=== PATIENT | female | born 1965 | race Caucasian/White ===

== ENCOUNTER 2022-04-19 08:40 | Outpatient (CLI) | payer BC, SELFPAY | END 2022-04-19 08:41 | disposition home or self-care (01) | DX: H65.23 Chronic serous otitis media, bilateral (principal); H90.41 Sensorineural hearing loss, unilateral, right ear, with unrestricted hearing on the contralateral side; H90.72 Mixed conductive and sensorineural hearing loss, unilateral, left ear, with unrestricted hearing on the contralateral side | CPT/HCPCS: 92557; 92567 ==

== ENCOUNTER 2022-06-28 13:01 | Outpatient (CLI) | payer BC, SELFPAY | END 2022-06-28 13:02 | disposition home or self-care (01) | DX: H90.3 Sensorineural hearing loss, bilateral (principal); H90.12 Conductive hearing loss, unilateral, left ear, with unrestricted hearing on the contralateral side | CPT/HCPCS: 92557; 92567 ==

== ENCOUNTER 2022-08-06 08:00 | Outpatient (RCR) | payer BC, SELFPAY | END 2022-08-20 09:48 | disposition other institution (70) | LOC: ANHBWCAUD 08:00 | DX: Z46.1 Encounter for fitting and adjustment of hearing aid (principal) | CPT/HCPCS: 99199; V5261 ==

== ENCOUNTER 2024-04-13 09:47 | Outpatient (CLI) | payer OTHER, SELFPAY | END 2024-04-13 09:48 | disposition home or self-care (01) | LOC: ANHBWCAUD 09:48 | DX: H90.A22 Sensorineural hearing loss, unilateral, left ear, with restricted hearing on the contralateral side (principal); H90.3 Sensorineural hearing loss, bilateral | CPT/HCPCS: 92557; 92567 ==

== ENCOUNTER 2025-02-14 10:30 | Outpatient (RCR) | payer SELFPAY | END 2025-03-28 23:59 | disposition home or self-care (01) | LOC: ANHAUDASC 10:30 | PROVIDERS: Visit Provider Audiologist | DX: Z46.1 Encounter for fitting and adjustment of hearing aid (principal) | CPT/HCPCS: 99199; V5264 ==